=== PATIENT | female | born 1990 | race Caucasian/White ===

== ENCOUNTER 2024-08-20 13:03 | Emergency (ER) | payer MEDICAID ==
[~2024-08-20] VITALS: Ht 160 cm; Wt 88.0 kg
[2024-08-20 13:09] VITALS: O2SAT 99
[2024-08-20 13:15] VITALS: TEMP 36.6; O2SAT 100
[2024-08-20] MEDS ORDERED: CYCL25PO15 MT (16:58)
[2024-08-20] MEDS ORDERED: IBUP-2030 MT (16:58)
[2024-08-20] MEDS ORDERED: CYCL10TA21 MT (17:03)
[2024-08-20 17:33] VITALS: BP 130/90; PULSE 102; RESP 18
[2024-08-20] MEDS: CYCLOBENZAPRINE 10MG TABLET PO ONE (17:33)
[2024-08-20] MEDS: IBUPROFEN 800MG TABLET PO ONE (17:33)
== END 2024-08-20 17:38 | disposition home or self-care (01) ==
LOC: ER 13:03
DX: S33.5XXA Sprain of ligaments of lumbar spine, initial encounter (principal); J45.909 Unspecified asthma, uncomplicated; Z98.890 Other specified postprocedural states; Z79.899 Other long term (current) drug therapy; Z88.5 Allergy status to narcotic agent; X58.XXXA Exposure to other specified factors, initial encounter; Y93.89 Activity, other specified; Y92.89 Other specified places as the place of occurrence of the external cause; Y99.8 Other external cause status
CPT/HCPCS: 99283